=== PATIENT | female | born 1935 | race Caucasian/White ===

== ENCOUNTER 2018-10-20 11:01 | Emergency (ER) | payer OTHER ==
[~2018-10-20] VITALS: Ht 152.4 cm; Wt 81.6 kg
[2018-10-20] MEDS ORDERED: HYDRALAZINE HCL50 MG (11:35)
[2018-10-20] MEDS ORDERED: METOPROLOL SUC100 MG (11:35)
[2018-10-20] MEDS ORDERED: COZAAR100 MG (11:35)
[2018-10-20] MEDS ORDERED: PRAVASTATIN SOD40 MG (11:36)
== END 2018-10-20 14:45 | disposition home or self-care (01) ==
LOC: ER 11:01
DX: M77.31 Calcaneal spur, right foot (principal)

== ENCOUNTER 2020-09-09 08:50 | Outpatient (CLI) | payer OTHER ==
[~2020-09-09 08:50] MED LIST: COZAAR100 MG; HYDRALAZINE HCL50 MG; METOPROLOL SUC100 MG; PRAVASTATIN SOD40 MG
== END 2020-09-09 08:58 | disposition home or self-care (01) ==
LOC: SONOGRAMA 08:50
PROVIDERS: ATTEND Internal Medicine Nephrology
DX: Q61.01 Congenital single renal cyst (principal); N28.89 Other specified disorders of kidney and ureter

== ENCOUNTER 2021-03-05 07:49 | Outpatient (CLI) | payer OTHER | END 2021-03-05 08:00 | disposition home or self-care (01) | LOC: SONOGRAMA 07:49 | PROVIDERS: ATTEND Internal Medicine Nephrology | DX: Q61.02 Congenital multiple renal cysts (principal); R18.8 Other ascites ==

== ENCOUNTER 2021-04-27 01:17 | Emergency (ER) | payer OTHER ==
[~2021-04-27] VITALS: Ht 152.4 cm; Wt 77.1 kg
== END 2021-04-27 03:01 | disposition home or self-care (01) ==
LOC: ER 01:17
DX: S01.81XA Laceration without foreign body of other part of head, initial encounter (principal); W18.30XA Fall on same level, unspecified, initial encounter; Y92.89 Other specified places as the place of occurrence of the external cause; I10 Essential (primary) hypertension

== ENCOUNTER 2021-11-19 10:43 | Outpatient (CLI) | payer OTHER | END 2021-11-19 10:52 | disposition home or self-care (01) | LOC: MRI 10:43 | PROVIDERS: ATTEND Internal Medicine Rheumatology | DX: M75.51 Bursitis of right shoulder (principal); M75.52 Bursitis of left shoulder | CPT/HCPCS: 73218 ==

== ENCOUNTER 2022-02-06 07:26 | Emergency (ER) | payer OTHER ==
[~2022-02-06] VITALS: Ht 152.4 cm; Wt 76.7 kg
[2022-02-06] MEDS ORDERED: DIOVAN40 MG PO (07:39)
== END 2022-02-06 14:19 | disposition home or self-care (01) ==
LOC: ER 07:26
DX: R00.2 Palpitations (principal)

== ENCOUNTER → 2022-04-08 | Outpatient (CLI) | payer OTHER ==
[~2022-04-08] MED LIST changes: +CARDURA1 MG; +CHILDREN'S ASPI81 MG PO; +DIOVAN40 MG PO; +DOXAZOSIN MESYLA2 MG PO
== END | disposition home or self-care (01) ==
LOC: NUCLEAR 08:54
PROVIDERS: ATTEND General Practice
DX: I73.9 Peripheral vascular disease, unspecified (principal); R60.0 Localized edema

== ENCOUNTER 2022-04-09 09:04 | Outpatient (CLI) | payer OTHER ==
[~2022-04-09 09:04] MED LIST changes: -CARDURA1 MG; -CHILDREN'S ASPI81 MG PO; -DOXAZOSIN MESYLA2 MG PO
== END 2022-04-09 09:05 | disposition home or self-care (01) ==
LOC: NUCLEAR 09:04
PROVIDERS: ATTEND General Practice
DX: I73.9 Peripheral vascular disease, unspecified (principal); R60.0 Localized edema

== ENCOUNTER 2022-04-12 13:59 | Emergency (ER) | payer OTHER ==
[~2022-04-12] VITALS: Ht 152.4 cm; Wt 75.3 kg
[2022-04-12] MEDS ORDERED: DOXAZOSIN MESYLA2 MG PO (14:23)
[2022-04-12] MEDS ORDERED: CARDURA1 MG (14:24)
[2022-04-12] MEDS ORDERED: CHILDREN'S ASPI81 MG PO (14:24)
== END 2022-04-12 16:44 | disposition home or self-care (01) ==
LOC: ER 13:59
DX: G44.89 Other headache syndrome (principal)

== ENCOUNTER 2023-04-14 10:10 | Outpatient (CLI) | payer OTHER ==
[~2023-04-14 10:10] MED LIST changes: +CARDURA1 MG; +CHILDREN'S ASPI81 MG PO; +DOXAZOSIN MESYLA2 MG PO
== END 2023-04-14 10:31 | disposition home or self-care (01) ==
LOC: RAD 10:10
PROVIDERS: ATTEND Physical Medicine & Rehabilitation
DX: M25.512 Pain in left shoulder (principal); M25.511 Pain in right shoulder; S46.802A Unspecified injury of other muscles, fascia and tendons at shoulder and upper arm level, left arm, initial encounter; S46.801A Unspecified injury of other muscles, fascia and tendons at shoulder and upper arm level, right arm, initial encounter